=== PATIENT | male | born 1985 | race African-American/Black ===

== ENCOUNTER 2023-06-17 22:13 | Emergency (ER) | payer SELFPAY ==
[~2023-06-17] VITALS: Ht 170.2 cm; Wt 81.3 kg
[2023-06-17 22:27] VITALS: BP 142/98; PULSE 113; RESP 20; O2SAT 96
[2023-06-17 22:30] LABS: Basophils # (auto) 0 10 ^3/uL (0-0.2); Eosinophils # (auto) 0 10 ^3/uL (0-0.8); Hemoglobin 17.2 g/dL (13.5-17.5); Lymphocytes # (auto) 1.3 10 ^3/uL (0.4-5.4); Monocytes # (auto) 1.3 10 ^3/uL (0-1.3); White Blood Cell 12.6 10^3/uL (4.4-10.8)
[2023-06-17 22:32] LABS: Basophils % (auto) 0.4 % (0.0-2.0); Hematocrit 51.9 % (41.0-53.0); Lymphocytes % (auto) 10.2 % (10.0-50.0); Mean Corpuscular Hemoglobin 27.1 pg (28.0-32.0); Mean Corpuscular Hgb Conc. 33.2 g/dL (32.0-36.0); Mean Corpuscular Volume 81.8 fL (80.0-100.0); Monocytes % (auto) 10.1 % (0.0-12.0); Neutrophils % (auto) 79.3 % (37.0-80.0); Nucleated Red Blood Cells % 0.2 %; Red Blood Cells 6.35 10^6/uL (4.5-5.90); Red Cell Distribution Width 13.9 % (11.8-14.3)
[2023-06-17 22:48] LABS: Albumin 5.1 g/dL (3.4-5.0); Calcium 10.1 mg/dL (8.5-10.1); Magnesium 2.4 mg/dL (1.6-2.6); Potassium 4.1 mmol/L (3.5-5.1)
[2023-06-17 22:52] LABS: Bilirubin, Total 0.8 mg/dL (0.2-1.0); Total Protein 9.9 g/dL (6.4-8.2)
[2023-06-17 23:19] LABS: INR 1.09 (0.9-1.15); Partial Thromboplastin Time 26.8 SEC (24.5-34.5)
== END 2023-06-18 00:24 | disposition left against medical advice (07) ==
LOC: ER 22:13
DX: R07.89 Other chest pain (principal); R42 Dizziness and giddiness; Z53.21 Procedure and treatment not carried out due to patient leaving prior to being seen by health care provider
CPT/HCPCS: 36415; 71045; 80053; 83735; 83880; 84484; 85025; 85610; 85730; 93005